=== PATIENT | female | born 1930 | race Caucasian/White ===

== ENCOUNTER 2018-10-12 15:25 | Inpatient (IN) ==
[2018-10-12] MEDS ORDERED: SODIUM CHLORIDE 0.9% 500 ML IV STA (15:53)
[2018-10-12] MEDS ORDERED: ZIPRASIDONE 20 MG/1 ML VIAL IM ONE ×2 (16:17→16:24)
[2018-10-12 16:39] LABS: Apearance,Urine CLOUDY (Clear); Bacteria,Urine Moderate /HPF (Few); Bilirubin,Urine Negative (Negative); Blood, Urine Small mg/dL (Negative); Glucose,Urine (UA) Negative (Negative); Ketones,Urine Negative (Negative); Mucus,Urine Few /LPF (Occasional); Nitrite,Urine Positive (Negative); Protein,Urine 30 MG/DL; RBC,Urine 17 /HPF (0-4); Squamous Epithelial Cell,Urine Many /HPF (0-10); Urine Color Yellow (Yellow); Urine Specific Gravity 1.015 (1.001-1.035); WBC,Urine 576 /HPF (0-6)
[2018-10-12 17:20] LABS: Basophils % 0.3 % (0.0-0.8); Eosinophils % 0.1 % (0.00-10.9); Hematocrit 38.3 VOL% (35.7-47.0); Hemoglobin 11.9 GM/DL (12.0-16.0); Immature Granulocytes % 0.5 %; Immature Granulocytes Absolute 0.05 #; Lymphocytes # 3.3 10*3/uL (1.4-4.0); Lymphocytes % 36.1 % (21.3-54.2); Mean Corpuscular HGB Conc 31.1 GM/DL (32-36); Mean Corpuscular Hemoglobin 27 PG (27-34); Monocytes # 1.7 10*3/uL (0.11-0.8); Monocytes % 17.9 % (1.7-12.7); Neutrophils # 4.2 10*3/uL (1.4-7.4); Neutrophils % 45.1 % (38.7-73.9); Platelet Count 96 T/CUMM (130-400); Red Cell Distribution Width 15.1 % (9.3-17.3); White Blood Count 9.3 T/CUMM (4-12)
[2018-10-12 17:28] LABS: PT Patient Result 10.5 SECS
[2018-10-12] MEDS ORDERED: LEVOFLOXACIN INJ 500 MG in PREMIX 1 EACH IV STA (17:39)
[2018-10-12 17:46] LABS: Alanine Aminotransferase 22 U/L (13-56); Albumin 3.4 G/DL (3.4-5.0); Alkaline Phosphatase 112 U/L (45-117); Aspartate Amino Transferase 35 U/L (0-37); Bilirubin,Total < 0.39 MG/DL (0.2-1.0); Blood Urea Nitrogen 13 MG/DL (7-18); Calcium 8.5 MG/DL (8.5-10.1); Glucose 94 MG/DL (74-106); Potassium 4.1 MMOL/L (3.5-5.1); Sodium 143 MMOL/L (136-145)
[2018-10-12 19:19] LABS: Lymphocytes 32 % (20-55); Platelet Estimate Decreased; Segmented Neutrophils 58 % (50-85); Total Cells Counted 100
[2018-10-12 19:20] LABS: Anisocytosis Slight
[2018-10-12 19:21] LABS: Hypochromasia 1+
[2018-10-12] MEDS ORDERED: DOCUSATE SODIUM 100 MG CAPSULE PO PRN (19:51)
[2018-10-12] MEDS ORDERED: ONDANSETRON 4 MG/2 ML VIAL IV PRN (19:51)
[2018-10-12] MEDS ORDERED: ACETAMINOPHEN 325 MG TABLET PO PRN (19:51)
[2018-10-12] MEDS ORDERED: MAGNESIUM SULF RIDER 4 GM in PREMIX 1 EACH IV PRN (19:55)
[2018-10-12] MEDS ORDERED: MAGNESIUM SULF RIDER 2 GM in PREMIX 1 EACH IV PRN (19:55)
[2018-10-12] MEDS: OXcarbazepine 300 MG TABLET PO SCH (22:52)
[2018-10-12] MEDS: CHOLECALCIFEROL 1,000 UNIT TABLET PO SCH (22:52)
[2018-10-12] MEDS: ASPIRIN EC 81 MG TABLET PO SCH (22:52)
[2018-10-12] MEDS: MEMANTINE 5 MG TABLET PO SCH (22:53)
[2018-10-12] MEDS: POTASSIUM CHLORIDE 20 MEQ/15 ML UDCUP PO SCH (22:53)
[2018-10-12] MEDS: SODIUM CHLORIDE 0.9% 1,000 ML IV SCH (22:53)
[2018-10-12] MEDS: MULTIVITAMIN (CENTRUM) TABLET PO SCH (22:53)
[2018-10-12] MEDS: BRIMONIDINE/TIMOLOL OPH SOLN 5 ML BOTTLE BOTH EYES SCH (23:00)
[2018-10-12] MEDS ORDERED: ZIPRASIDONE 20 MG/1 ML VIAL IM PRN (23:00)
[2018-10-13 06:38] LABS: Calcium 8.3 MG/DL (8.5-10.1); Potassium 3.5 MMOL/L (3.5-5.1)
[2018-10-13 07:04] LABS: Basophils % 0.4 % (0.0-0.8); Eosinophils % 0.4 % (0.00-10.9); Hematocrit 41.2 VOL% (35.7-47.0); Immature Granulocytes % 0.7 %; Immature Granulocytes Absolute 0.04 #; Lymphocytes # 2.7 10*3/uL (1.4-4.0); Lymphocytes % 46.8 % (21.3-54.2); Mean Corpuscular HGB Conc 29.9 GM/DL (32-36); Mean Corpuscular Hemoglobin 27 PG (27-34); Mean Corpuscular Volume 91.4 FL (87-102); Mean Platelet Volume 12.7 FL (9.6-12.0); Monocytes # 0.9 10*3/uL (0.11-0.8); Monocytes % 15.4 % (1.7-12.7); Neutrophils # 2.1 10*3/uL (1.4-7.4); Neutrophils % 36.3 % (38.7-73.9); Platelet Count 100 T/CUMM (130-400); Red Blood Count 4.51 MC/CUMM (3.8-5.5); Red Cell Distribution Width 15.3 % (9.3-17.3); White Blood Count 5.7 T/CUMM (4-12)
[2018-10-13 07:40] LABS: Hemoglobin 12.3 GM/DL (12.0-16.0)
[2018-10-13 08:32] LABS: Lymphocytes 50 % (20-55); Segmented Neutrophils 41 % (50-85); Total Cells Counted 100
[2018-10-13 08:33] LABS: Hypochromasia 1+; Microcytosis 1+
[2018-10-13 08:34] LABS: Ovalocytes Slight; Platelet Estimate Decreased
[2018-10-13] MEDS: PANTOPRAZOLE 40 MG TABLET PO SCH (10:21)
[2018-10-13] MEDS: OXcarbazepine 300 MG TABLET PO SCH ×3 (10:21→21:58)
[2018-10-13] MEDS: BRIMONIDINE/TIMOLOL OPH SOLN 5 ML BOTTLE BOTH EYES SCH (10:21)
[2018-10-13] MEDS: FUROSEMIDE 20 MG TABLET PO SCH (10:21)
[2018-10-13] MEDS: METOPROLOL SUCCINATE XL 25 MG TABLET PO SCH (14:01)
[2018-10-13 15:32] LABS: CKMB % 1.4 %
[2018-10-13 15:33] LABS: Troponin I 0.073 NG/ML (0.00-0.045)
[2018-10-13] MEDS: SODIUM CHLORIDE 0.9% 1,000 ML IV SCH (17:16)
[2018-10-13] MEDS: amLODIPine 2.5 MG TABLET PO SCH (17:24)
[2018-10-13] MEDS ORDERED: LEVOFLOXACIN INJ 500 MG in PREMIX 1 EACH IV SCH (18:00)
[2018-10-13] MEDS ORDERED: LEVOFLOXACIN 500 MG TABLET PO SCH (18:00)
[2018-10-13] MEDS: MEMANTINE 5 MG TABLET PO SCH (21:58)
[2018-10-13] MEDS: CHOLECALCIFEROL 1,000 UNIT TABLET PO SCH (21:58)
[2018-10-13] MEDS: POTASSIUM CHLORIDE 20 MEQ/15 ML UDCUP PO SCH ×2 (21:58→22:04)
[2018-10-13] MEDS: ASPIRIN EC 81 MG TABLET PO SCH (21:58)
[2018-10-13] MEDS: MULTIVITAMIN (CENTRUM) TABLET PO SCH (21:58)
[2018-10-13 22:33] LABS: Troponin I 0.049 NG/ML (0.00-0.045)
[2018-10-14] MEDS: BRIMONIDINE/TIMOLOL OPH SOLN 5 ML BOTTLE BOTH EYES SCH ×2 (02:38→15:27)
[2018-10-14 06:46] LABS: Basophils % 0.5 % (0.0-0.8); Eosinophils % 0.5 % (0.00-10.9); Hematocrit 37.4 VOL% (35.7-47.0); Hemoglobin 11.3 GM/DL (12.0-16.0); Immature Granulocytes % 0.5 %; Immature Granulocytes Absolute 0.03 #; Lymphocytes # 2.8 10*3/uL (1.4-4.0); Lymphocytes % 45.6 % (21.3-54.2); Mean Corpuscular HGB Conc 30.2 GM/DL (32-36); Mean Corpuscular Hemoglobin 26 PG (27-34); Mean Corpuscular Volume 87.2 FL (87-102); Mean Platelet Volume 12.4 FL (9.6-12.0); Monocytes # 1.1 10*3/uL (0.11-0.8); Neutrophils # 2.2 10*3/uL (1.4-7.4); Neutrophils % 35.9 % (38.7-73.9); Platelet Count 121 T/CUMM (130-400); Red Blood Count 4.29 MC/CUMM (3.8-5.5); Red Cell Distribution Width 15.4 % (9.3-17.3); White Blood Count 6.2 T/CUMM (4-12)
[2018-10-14 07:07] LABS: Calcium 8.6 MG/DL (8.5-10.1); Osmolality,Calculated 283.1 MOS/KG (273-304); Potassium 3.5 MMOL/L (3.5-5.1)
[2018-10-14 07:18] LABS: Risk Ratio 8.58; VLDL CHOLESTEROL 17.4 MG/DL
[2018-10-14 07:19] LABS: Eosinophils 1 % (0-10); Lymphocytes 40 % (20-55); Macrocytosis 1+; Platelet Estimate Adequate; Segmented Neutrophils 44 % (50-85); Total Cells Counted 100
[2018-10-14] MEDS ORDERED: ARIPiprazole 5 MG TABLET PO SCH (09:00)
[2018-10-14] MEDS: FUROSEMIDE 20 MG TABLET PO SCH (10:00)
[2018-10-14] MEDS: OXcarbazepine 300 MG TABLET PO SCH (10:00)
[2018-10-14] MEDS ORDERED: cefTRIAXone 1,000 MG in SYRINGE 1 EACH IV SCH (10:00)
[2018-10-14] MEDS: PANTOPRAZOLE 40 MG TABLET PO SCH (10:00)
[2018-10-14] MEDS: amLODIPine 2.5 MG TABLET PO SCH (10:00)
[2018-10-14] MEDS: METOPROLOL SUCCINATE XL 25 MG TABLET PO SCH (10:00)
[2018-10-14] MEDS: SULFAMETHOX/TRIMETHOPRIM 400-80 MG TABLET PO SCH (15:24)
[2018-10-14] MEDS: LACTULOSE 20 GM/30 ML UDCUP PO SCH (15:27)
[2018-10-14] MEDS: SODIUM CHLORIDE 0.9% 1,000 ML IV SCH (15:28)
[2018-10-14] MEDS ORDERED: cefTRIAXone 1,000 MG VIAL IM SCH (16:30)
[2018-10-15] MEDS: MULTIVITAMIN (CENTRUM) TABLET PO SCH (01:17)
[2018-10-15] MEDS: BRIMONIDINE/TIMOLOL OPH SOLN 5 ML BOTTLE BOTH EYES SCH ×2 (01:17→09:36)
[2018-10-15] MEDS: SULFAMETHOX/TRIMETHOPRIM 400-80 MG TABLET PO SCH ×2 (01:17→09:37)
[2018-10-15] MEDS: LACTULOSE 20 GM/30 ML UDCUP PO SCH ×2 (01:17→09:37)
[2018-10-15] MEDS: MEMANTINE 5 MG TABLET PO SCH (01:17)
[2018-10-15] MEDS: CHOLECALCIFEROL 1,000 UNIT TABLET PO SCH (01:18)
[2018-10-15] MEDS: POTASSIUM CHLORIDE 20 MEQ/15 ML UDCUP PO SCH (01:18)
[2018-10-15] MEDS: ASPIRIN EC 81 MG TABLET PO SCH (01:18)
[2018-10-15] MEDS: OXcarbazepine 300 MG TABLET PO SCH ×2 (01:18→09:37)
[2018-10-15] MEDS: SODIUM CHLORIDE 0.9% 1,000 ML IV SCH (09:36)
[2018-10-15] MEDS: PANTOPRAZOLE 40 MG TABLET PO SCH (09:37)
[2018-10-15] MEDS: METOPROLOL SUCCINATE XL 25 MG TABLET PO SCH (09:37)
[2018-10-15] MEDS: FUROSEMIDE 20 MG TABLET PO SCH (09:37)
[2018-10-15] MEDS: amLODIPine 2.5 MG TABLET PO SCH (09:37)
[2018-10-15 12:36] VITALS: BP 146/58
== END 2018-10-15 12:15 | DRG 689 ==
LOC: EDBD → EDUNIT# → N.ED 15:25 → N.EDINP 15:25 → N.5E 20:56
PROVIDERS: ADMIT Emergency Medicine; ATTEND Emergency Medicine